=== PATIENT | male | born 1980 | race Caucasian/White ===

== ENCOUNTER 2016-03-20 18:09 | Emergency (ER) | payer OTHER ==
[2016-03-20 18:24] VITALS: BP 134/81
[2016-03-20] MEDS ORDERED: BSS OPTH.SOL* BTL ONE (18:39)
[2016-03-20] MEDS ORDERED: Fluorescein Sodium TOPICAL* 1 MG TEST ONE (18:39)
[2016-03-20] MEDS ORDERED: Tetracaine 0.5% OPTH.SOL 4 ML* 1 DROP BTL ONE (18:40)
--- NOTE | 2016-03-20 19:14 | UC ---
Eye Complaint HPI - HPI Summary HPI Summary: LEFT EYE REDNESS / PAIN , FB SENSATION + METAL SHAVING JUMPED IN HIS LEFT EYE , NO CHANGE IN VISION, NO PHOTOPHOBIA 2 WEEKS HX OF SINUS PRESSURE, NASAL CONGESTION , NO FEVER, NO COUGH - History of Current Complaint Chief Complaint: UCEye Stated Complaint: EYE IRRITATION Time Seen by Provider: 03/20/16 18:35 Hx Obtained From: Patient Onset/Duration: Sudden Onset, Lasting Days - 1, Still Present Timing: Constant Severity Initially: Moderate Severity Currently: Moderate Pain Intensity: 0 Pain Scale Used: 0-10 Numeric Location of Injury: Conjunctiva Character: Dull, Foreign Body Sensation - LEFT EYE Aggravating Factor(s): Nothing Alleviating Factor(s): Nothing Associated Signs And Symptoms: Positive: Drainage (Clear). Negative: Photophobia, Drainage (Purulent), Vision Impairment Bilateral, Vision Impairment Right, Vision Impairment Left, Fever, Swelling - Allergies/Home Medications Allergies/Adverse Reactions: Allergies Allergy/AdvReac Type Severity Reaction Status Date / Time Cephalexin [From Keflex] Allergy Hives Verified 03/20/16 18:24 Penicillins Allergy Hives Verified 03/20/16 18:24 PMH/Surg Hx/FS Hx/Imm Hx Previously Healthy: Yes - Surgical History Surgical History: Yes Surgery Procedure, Year, and Place: T & A, [facility] - Family History Known Family History: Positive: Diabetes - Social History Alcohol Use: Weekly Alcohol Amount: few times a week Substance Use Type: None Smoking Status (MU): Heavy Every Day Tobacco Smoker Type: Cigarettes Amount Used/How Often: 1 PK DAILY - Immunization History Most Recent Influenza Vaccination: none Review of Systems Constitutional: Negative Skin: Negative Eyes: Other - LEFT EYE PAIN ENT: Nasal Discharge Respiratory: Negative Cardiovascular: Negative All Other Systems Reviewed And Are Negative: Yes Physical Exam Triage Information Reviewed: Yes Appearance: Well-Appearing, No Pain Distress, Well-Nourished Vital Signs: Initial Vital Signs Temp 97.8 F 03/20/16 18:18 Pulse 84 03/20/16 18:18 Resp 17 03/20/16 18:18 BP 134/81 03/20/16 18:18 Pulse Ox 100 03/20/16 18:18 Vital Signs Reviewed: Yes Eyes: Positive: Conjunctiva Inflamed - LEFT EYE, Other: - CORNEAL ABRASION LEFT EYE , NO FB SEEN ENT: Positive: Normal ENT inspection, Hearing grossly normal, Pharyngeal erythema, Nasal congestion, Nasal drainage, TMs normal Neck exam: Normal Neck: Positive: Supple, Nontender, No Lymphadenopathy Respiratory: Positive: Chest non-tender, Lungs clear, Normal breath sounds Cardiovascular: Positive: RRR, No Murmur, Pulses Normal Eye Complaint Course/Dx - Differential Dx/Diagnosis Provider Diagnoses: CORNEAL ABRASION LEFT EYE. SINUSITIS Discharge - Discharge Plan Condition: Stable Disposition: HOME Prescriptions: Azithromycin TAB* [Zithromax TAB (Z-TOM) 250 mg #6 tabs] 2 tab PO .TODAY, THEN 1 DAILY #1 tom Erythromycin OPHTH.OINT* [Ilotycin OPHTH.OINT*] 1 applic LEFT EYE Q6H #1 tube Patient Education Materials: Sinusitis (ED), Corneal Abrasion (ED) Referrals: CLINT Mina [Medical Doctor] - Additional Instructions: FOLLOW UP IN 2 DAYS IF HAVING EYE PAIN , CHANGE IN YOUR VISION OR NO BETTER
== END 2016-03-20 19:09 | disposition home or self-care (01) ==
LOC: UCCORT 18:09
DX: S05.02XA Injury of conjunctiva and corneal abrasion without foreign body, left eye, initial encounter (principal); J32.9 Chronic sinusitis, unspecified; F17.210 Nicotine dependence, cigarettes, uncomplicated; X58.XXXA Exposure to other specified factors, initial encounter; Y92.9 Unspecified place or not applicable; Z88.0 Allergy status to penicillin; Z88.1 Allergy status to other antibiotic agents
CPT/HCPCS: 99212; A9270-GY; G0463

== ENCOUNTER 2016-10-01 15:53 | Emergency (ER) | payer OTHER ==
--- NOTE | 2016-10-01 16:03 | UC ---
Allergic Reaction HPI - HPI Summary HPI Summary: 36 YEAR OLD MALE PRESENTS WITH COMPLAINS OF REACTION TO A BEE STING. I WILL SEND HIM TO THE ER. - History of Current Complaint Stated Complaint: BEE STINGS,TIGHT THROAT,DIZZY Time Seen by Provider: 10/01/16 15:58 - Allergies/Home Medications Allergies/Adverse Reactions: Allergies Allergy/AdvReac Type Severity Reaction Status Date / Time Bee Venom Allergy Anaphylatic Verified 10/01/16 15:55 Shock Cephalexin [From Keflex] Allergy Hives Verified 10/01/16 15:55 Penicillins Allergy Hives Verified 10/01/16 15:55 Home Medications: Home Medications NK [No Home Medications Reported] 10/01/16 [History Confirmed 10/01/16] PMH/Surg Hx/FS Hx/Imm Hx Previously Healthy: Yes - Surgical History Surgical History: Yes Surgery Procedure, Year, and Place: T & A, [facility] - Family History Known Family History: Positive: Diabetes - Social History Alcohol Use: Weekly Alcohol Amount: few times a week Substance Use Type: None Smoking Status (MU): Heavy Every Day Tobacco Smoker Type: Cigarettes Amount Used/How Often: 1 PK DAILY - Immunization History Most Recent Influenza Vaccination: none Review of Systems Constitutional: Negative Skin: Rash, Other - bee sting Eyes: Negative ENT: Negative Respiratory: Negative Cardiovascular: Negative Gastrointestinal: Negative Genitourinary: Negative Motor: Negative Neurovascular: Negative Musculoskeletal: Negative Neurological: Negative Psychological: Negative All Other Systems Reviewed And Are Negative: Yes Physical Exam Triage Information Reviewed: Yes Eye Exam: Normal ENT Exam: Normal ENT: Positive: Pharyngeal erythema Dental Exam: Normal Neck exam: Normal Neck: Positive: 1 Respiratory Exam: Normal Cardiovascular Exam: Normal Abdominal Exam: Normal Musculoskeletal Exam: Normal Neurological Exam: Normal Psychological Exam: Normal Skin: Positive: rashes, Other - bee sting Allergic Reaction Course/Dx - Differential Dx/Diagnosis Provider Diagnoses: ALLERGIC REACTION TO A BEE STING Discharge - Discharge Plan Condition: Guarded Disposition: [facility] Referrals: CLINT Mina [Primary Care Provider] - Additional Instructions: PATIENT TRANSFERRED BY EMS TO [facility] FOR ANAPHYLACTIC REACTION TO BEE STING.
[2016-10-01 16:29] VITALS: BP 140/89
== END 2016-10-01 16:25 | disposition short-term general hospital (02) ==
LOC: UCCORT 15:53
DX: T63.441A Toxic effect of venom of bees, accidental (unintentional), initial encounter (principal); R42 Dizziness and giddiness; R09.89 Other specified symptoms and signs involving the circulatory and respiratory systems; Y92.9 Unspecified place or not applicable; Z88.1 Allergy status to other antibiotic agents; Z88.0 Allergy status to penicillin; Z91.030 Bee allergy status; F17.210 Nicotine dependence, cigarettes, uncomplicated
CPT/HCPCS: 99213; G0463

== ENCOUNTER 2017-03-24 13:37 | Emergency (ER) | payer OTHER ==
[2017-03-24 15:33] VITALS: BP 155/102
--- NOTE | 2017-03-24 15:48 | UC ---
FLU HPI - HPI Summary HPI Summary: 36 y/o male presents to the urgent care c/o headache, chills, nasal congestion , cough, started yesterday. Pt reports her sister in-law was recently Dx with influenza. He also has body aches and subjective fever at home. Pain is 6/10. Pt has not taking anything to alleviate symptoms. Pt denies SOB, chest pain, abdominal pain, N/V/D - History of Current Complaint Chief Complaint: UCGeneralIllness Stated Complaint: ACHY HEADACHE COUGH CONGESTION Time Seen by Provider: 03/24/17 15:34 Hx Obtained From: Patient Onset/Duration: Gradual Onset, Lasting Days - 1 day Severity Currently: Moderate Severity Initially: Moderate Pain Intensity: 6 Pain Scale Used: 0-10 Numeric Associated Signs & Symptoms: Positive: Fever, Myalgia, Cough, Sore Throat, Nasal Congestion, Headache - Risk Factors Influenza Risk Factors: Negative - Allergy/Home Medications Allergies/Adverse Reactions: Allergies Allergy/AdvReac Type Severity Reaction Status Date / Time MS Bee Venom [Bee Venom] Allergy Anaphylatic Verified 03/24/17 15:33 Shock MS Cephalexin [From Keflex] Allergy Hives Verified 03/24/17 15:33 MS Penicillins [Penicillins] Allergy Hives Verified 03/24/17 15:33 PMH/Surg Hx/FS Hx/Imm Hx Previously Healthy: Yes Other Endocrine History: Hypoglycemia - Surgical History Surgical History: Yes Surgery Procedure, Year, and Place: T & A, [facility] - Family History Known Family History: Positive: Diabetes - Social History Occupation: Employed Full-time Lives: With Family Alcohol Use: Occasionally Alcohol Amount: few times a week Substance Use Type: None Smoking Status (MU): Heavy Every Day Tobacco Smoker Type: Cigarettes Amount Used/How Often: 1 PK DAILY - Immunization History Most Recent Influenza Vaccination: none Review of Systems Constitutional: Fever, Chills, Other - body aches Skin: Negative Eyes: Negative ENT: Sore Throat, Nasal Discharge, Sinus Congestion Respiratory: Cough Cardiovascular: Negative Gastrointestinal: Negative Genitourinary: Negative Motor: Negative Neurovascular: Negative Musculoskeletal: Negative Neurological: Headache Psychological: Negative Is Patient Immunocompromised?: No All Other Systems Reviewed And Are Negative: Yes Physical Exam Triage Information Reviewed: Yes Vital Signs: Initial Vital Signs Temp 99.8 F 03/24/17 15:28 Pulse 100 03/24/17 15:28 Resp 16 01/30/18 15:28 BP 155/102 03/24/17 15:28 Pulse Ox 100 03/24/17 15:28 - Additional Comments VITAL SIGNS: Reviewed. GENERAL: Patient is a well developed and nourished male who is sitting comfortable in the examining table. Patient is not in any acute respiratory distress. HEAD AND FACE: No signs of trauma. No ecchymosis, hematomas or skull depressions. No sinus tenderness. edematous erythematous nasal mucosa with yellowish discharge, EYES: PERRLA, EOMI x 2, No injected conjunctiva, clear watery eyes, no nystagmus. No photophobia. EARS: Hearing grossly intact. Ear canals and tympanic membranes are within normal limits. MOUTH: Positive pharynx with erythema, no exudates,no palatal petechiae. no B/ L tonsillar enlargement Uvula in midline. NECK: Supple, trachea is midline, Positive anterior cervical lymphadenopathy, no JVD, no carotid bruit, no c-spine tenderness, neck with full ROM. No meningeal signs, no Kernig's or brudzinskis signs. CHEST: Symmetric, no tenderness at palpation LUNGS: Clear to auscultation bilaterally. No wheezing or crackles. CVS: Regular rate and rhythm, S1 and S2 present, no murmurs or gallops appreciated. ABDOMEN: Soft, non-tender. No signs of distention. No rebound no guarding, and no masses palpated. Bowel sounds are normal. EXTREMITIES: FROM in all major joints, no edema, no cyanosis or clubbing. NEURO: Alert and oriented x 3. No acute neurological deficits. Speech is normal and follows commands. SKIN: Dry and warm Flu Course/Dx - Course Course Of Treatment: 36 y/o male presents to the urgent care c/o headache, chills, nasal congestion , cough, started yesterday. Pt reports her sister in- law was recently Dx with influenza. He also has body aches and subjective fever at home. Pain is 6/10. Pt has not taking anything to alleviate symptoms. Pt denies SOB, chest pain, abdominal pain, N/V/D. Hx obtained. Pt with URI on examination. Most likely Influenza. However at this moment shortage of influenza test. Pt Rx Tamiflu and ibuprofen PO to alleviates symptoms. Advised on hand washing and wear a mask to avoid spreading. Pt advised to rest, increase fluid intake, eat well and avoid strenuous exercise. If symptoms do not improve or worsen advised to return to the urgent care or f/u with her PCP for further evaluation and treatment. Pt's BP is elevated today advised to decrease salt in diet, monitor BP and f/u with PCP for further management.Pt understood and agreed with plan of care. - Differential Dx/Diagnosis Differential Diagnosis/HQI/PQRI: Bronchitis, Influenza, Pneumonia, Upper Respiratory Infection Provider Diagnoses: 1- Influenza. 2- Elevated BP w/o Hx of HTN Discharge - Discharge Plan Condition: Stable Disposition: HOME Prescriptions: Ibuprofen TAB* [Motrin TAB* 800 MG] 800 mg PO Q6H #20 tab Oseltamivir CAP* [Tamiflu CAP*] 75 mg PO BID #10 cap Patient Education Materials: Influenza (ED), Low-Sodium Diet (ED) Forms: *Work Release Referrals: CLINT Mina [Primary Care Provider] - 3 Days Additional Instructions: 1- Please take the full course of the antiviral to avoid resistance. Encourage hand washing and wear a mask to avoid spreading. 2-Please continue taking Ibuprofen PO q6-8hrs prn as instructed after meals to alleviate fever, and sore throat. Increase fluid intake, eat well, rest and avoid strenuous exercise 3-If symptoms do not improve or worsen please return to the urgent care or f/u with your PCP in 2 days for further evaluation and treatment. 4-Your BP is elevated today. please decrease salt in your diet, monitor BP and if it continues to be elevated please f/u with your PCP for further management
== END 2017-03-24 16:14 | disposition home or self-care (01) ==
LOC: UCCORT 13:37
DX: J11.1 Influenza due to unidentified influenza virus with other respiratory manifestations (principal); R03.0 Elevated blood-pressure reading, without diagnosis of hypertension; E16.2 Hypoglycemia, unspecified; Z88.0 Allergy status to penicillin; Z88.1 Allergy status to other antibiotic agents; Z91.030 Bee allergy status; F17.210 Nicotine dependence, cigarettes, uncomplicated
CPT/HCPCS: 99212; G0463

== ENCOUNTER 2017-07-16 13:17 | Emergency (ER) | payer OTHER ==
[2017-07-16] MEDS ORDERED: Famotidine IV* 10 MG/ML 2 ML (20 mg) IV SLOW PU ONE (13:24)
[2017-07-16] MEDS ORDERED: diPHENhydraMINE IV* 50 MG/ML 1 ml VIAL (BENADRYL) IV ONE (13:24)
[2017-07-16] MEDS ORDERED: methylPREDNISolone 125 MG* 2 ML VIAL IV ONE (13:24)
[2017-07-16] MEDS ORDERED: EPINEPHrine AMP 1 MG/ML IM ONE (13:24)
--- NOTE | 2017-07-16 14:46 | ED ---
Allergic Reaction/Systemic - HPI Summary HPI Summary: 36-year-old male presents with a reaction to a bee sting. He states that he has shortness of breath and feels like his throat is closing up. He's had this reaction before and required epi. He does not have an EpiPen. He has not taking anything. He denies any headache. He denies any rash. He denies any nausea vomiting. He was stung on his left arm. He admits to palpitations. - History of Current Complaint Chief Complaint: EDAllergicReaction Time Seen by Provider: 07/16/17 13:26 Pain Intensity: 0 - Allergies/Home Medications Allergies/Adverse Reactions: Allergies Allergy/AdvReac Type Severity Reaction Status Date / Time MS Bee Venom [Bee Venom] Allergy Anaphylatic Verified 03/24/17 15:33 Shock MS Cephalexin [From Keflex] Allergy Hives Verified 03/24/17 15:33 MS Penicillins [Penicillins] Allergy Hives Verified 03/24/17 15:33 Home Medications: Home Medications Escitalopram (NF) [Lexapro 10 mg (NF)] 10 mg PO DAILY 07/16/17 [History Confirmed 07/16/17] PMH/Surg Hx/FS Hx/Imm Hx Endocrine/Hematology History: Denies: Hx Anticoagulant Therapy Respiratory History: Denies: Hx Asthma - Surgical History Surgery Procedure, Year, and Place: T & A, [facility] - Immunization History Immunizations Up to Date: Yes Infectious Disease History: No Infectious Disease History: Denies: Traveled Outside the [place] in Last 30 Days - Family History Known Family History: Positive: Diabetes - Social History Alcohol Use: Occasionally Alcohol Amount: few times a week Substance Use Type: Reports: None Smoking Status (MU): Heavy Every Day Tobacco Smoker Type: Cigarettes Amount Used/How Often: 1 PK DAILY Review of Systems Negative: Fever Positive: Sore Throat Negative: Chest Pain Positive: Shortness Of Breath. Negative: Cough Negative: Abdominal Pain All Other Systems Reviewed And Are Negative: Yes Physical Exam Triage Information Reviewed: Yes Vital Signs On Initial Exam: Initial Vitals Temp Pulse Resp BP Pulse Ox 98.9 F 124 22 146/101 96 07/16/17 13:20 07/16/17 13:20 07/16/17 13:20 07/16/17 13:20 07/16/17 13:20 Vital Signs Reviewed: Yes Appearance: Positive: Well-Appearing Skin: Positive: Warm, Dry Head/Face: Positive: Normal Head/Face Inspection Eyes: Positive: Normal, EOMI, ALLIE, Conjunctiva Clear ENT: Positive: Hearing grossly normal, Pharynx normal, TMs normal Respiratory/Lung Sounds: Positive: Clear to Auscultation, Breath Sounds Present Cardiovascular: Positive: Normal, RRR Abdomen Description: Positive: Nontender, Soft Bowel Sounds: Positive: Present Musculoskeletal: Positive: Normal Neurological: Positive: Normal Psychiatric: Positive: Normal Diagnostics - Vital Signs Vital Signs Temp Pulse Resp BP Pulse Ox 07/16/17 14:25 97.9 F 104 17 141/84 95 07/16/17 13:20 98.9 F 124 22 146/101 96 - Laboratory Lab Statement: Any lab studies that have been ordered have been reviewed, and results considered in the medical decision making process. Re-Evaluation - Re-Evaluation First Eval Re-Evaluation Time: 14:35 Change: Improved Comment: wants to be discharge. will have filler picker epipen before leave building. Allergic Reaction Course/Dx - Course Course Of Treatment: 36-year-old male presents with a reaction to a bee sting. He states that he has shortness of breath and feels like his throat is closing up. He's had this reaction before and required epi. He does not have an EpiPen. He has not taking anything. He denies any headache. He denies any rash. He denies any nausea vomiting. He was stung on his left arm. He admits to palpitations. With symptoms patient was immediately given EpiPen. I went to examine patient patient's lungs were clear to auscultation. Heart rate has come down. Pharynx is normal. Gave steroid and Benadryl patient feeling better. gave prescription from outpatient pharmacy for patient to go home with. Told that has a repeat episode to return to ED. Patient understands agrees with plan - Diagnoses Differential Diagnosis/HQI/PQRI: Positive: Airway Obstruction, Anaphylaxis, Erythema Nodosum, Local Allergic Reaction Provider Diagnoses: Anaphylactic reaction Discharge - Sign-Out/Discharge Documenting (check all that apply): Discharge/Admit/Transfer - Discharge Plan Condition: Good Disposition: HOME Prescriptions: EPINEPHrine [Epipen 2-Pete] 0.3 mg IJ ONCE #1 auto.injct predniSONE TAB* [Deltasone TAB*] 50 mg PO DAILY #4 tab Patient Education Materials: Anaphylaxis (ED) Referrals: CLINT Mina [Primary Care Provider] - Additional Instructions: Take Benadryl every 6 hours Take steroid once a day for 4 days starting tomorrow Return to ED if shortness of breath, chest pain, or if develop any new or worsening symptoms - Billing Disposition and Condition Condition: GOOD Disposition: HOME
[2017-07-16 14:49] VITALS: BP 135/78
== END 2017-07-16 14:48 | disposition home or self-care (01) ==
LOC: ED 13:17
DX: T78.2XXA Anaphylactic shock, unspecified, initial encounter (principal); X58.XXXA Exposure to other specified factors, initial encounter; Y92.9 Unspecified place or not applicable; F17.210 Nicotine dependence, cigarettes, uncomplicated
CPT/HCPCS: 96372; 96374; 96375; 99282; J0171; J1200; J2930

== ENCOUNTER 2020-09-08 13:34 | Inpatient (IN) ==
[2020-09-08] MEDS ORDERED: NS 0.9% 1000 ml BAG 1,000 ML IV ONE (15:16)
[2020-09-08 15:50] LABS: ABS Basophils 0.1 10^3/ul (0-0.2); ABS Lymphocytes 0.9 10^3/ul (1.0-4.8); ABS Monocytes 0.6 10^3/ul (0-0.8); ABS Neutrophils 4.7 10^3/ul (1.5-7.7); Eosinophil % 0.8 %; Hematocrit 45 % (42-52); Hemoglobin 16.4 g/dL (14.0-18.0); Lymphocyte % 13.7 %; Mean Corpuscular HGB Conc 36 g/dL (31-36); Mean Corpuscular Hemoglobin 34 pg (27-31); Mean Corpuscular Volume 94 fL (80-94); Mean Platelet Volume 7.4 fL (7.4-10.4); Platelet Count 197 10^3/uL (150-450); Red Blood Count 4.81 10^6 /uL (4.18-5.48); Red Cell Distribution Width 13 % (10-15); White Blood Count 6.2 10^3/uL (3.5-10.8)
[2020-09-08 15:55] LABS: Activated Partial Thrombo Time 31.7 seconds (26.0-38.0); INR 0.94 (0.86-1.15)
[2020-09-08 16:00] LABS: Albumin 4.6 g/dL (3.2-5.2); Albumin/Globulin Ratio 1.5 (1-3); C Reactive Protein 29.62 mg/L (<8.01); Calcium 9.3 mg/dL (8.6-10.3); EGFR African American 138.2 (>60); EGFR Non-African American 114.2 (>60); Potassium 3.9 mmol/L (3.5-5.0); Total Bilirubin 1.1 mg/dL (0.2-1.0); Total Protein 7.6 g/dL (6.4-8.9)
[2020-09-08] MEDS ORDERED: Iohexol 300 (CONTRAST) 10 ML SDV IV ONE (16:39)
[2020-09-08] MEDS ORDERED: Lactated Ringers 1000 ml BAG 1,000 ML IV ONE ×2 (17:12→17:50)
[2020-09-08] MEDS: Enoxaparin 40 MG/0.4 ML SYR SUBCUT SCH (18:46)
[2020-09-08] MEDS: Pantoprazole VIAL 40 MG VIAL IV SCH (18:46)
[2020-09-08] MEDS: Ondansetron 4 mg VIAL 2 MG/ML 2 ml VIAL IV PRN (18:47)
[2020-09-08] MEDS: Nicotine PATCH 21 MG/24 HR PATCH TRANSDERM SCH (18:47)
[2020-09-08 20:15] LABS: Hepatitis B Surface Antigen Nonreactive (Nonreactive)
[2020-09-08 20:20] LABS: Hepatitis A Ab IgM Negative (Negative); Hepatitis B Core IgM Nonreactive (Nonreactive)
[2020-09-08 20:32] LABS: Hepatitis C Antibody Negative (Negative)
[2020-09-08] MEDS: Lactated Ringers 1000 ml BAG 1,000 ML IV SCH (20:53)
[2020-09-08] MEDS ORDERED: Thiamine 100 MG/ML 2 ml VIAL (200 mg) IM ONE (21:05)
[2020-09-08] MEDS ORDERED: Lorazepam PYXIS KEY PRN (21:27)
[2020-09-09] MEDS: Ondansetron 4 mg VIAL 2 MG/ML 2 ml VIAL IV PRN ×3 (01:06→19:52)
[2020-09-09] MEDS: Lactated Ringers 1000 ml BAG 1,000 ML IV SCH ×3 (03:23→19:53)
[2020-09-09 05:58] LABS: ABS Eosinophils 0.1 10^3/ul (0-0.6); ABS Lymphocytes 0.8 10^3/ul (1.0-4.8); ABS Monocytes 0.3 10^3/ul (0-0.8); ABS Neutrophils 2.5 10^3/ul (1.5-7.7); Eosinophil % 2.2 %; Hematocrit 44 % (42-52); Hemoglobin 15.2 g/dL (14.0-18.0); Lymphocyte % 20.6 %; Mean Corpuscular HGB Conc 35 g/dL (31-36); Mean Corpuscular Hemoglobin 33 pg (27-31); Mean Corpuscular Volume 94 fL (80-94); Mean Platelet Volume 7.5 fL (7.4-10.4); Platelet Count 172 10^3/uL (150-450); Red Blood Count 4.61 10^6 /uL (4.18-5.48); Red Cell Distribution Width 13 % (10-15); White Blood Count 3.7 10^3/uL (3.5-10.8)
[2020-09-09] MEDS: LORazepam 2 mg VIAL 1 ml IV PUSH SCH (06:22)
[2020-09-09] MEDS: Nicotine PATCH 21 MG/24 HR PATCH TRANSDERM SCH (06:23)
[2020-09-09 07:02] LABS: Albumin 3.6 g/dL (3.2-5.2); Albumin/Globulin Ratio 1.4 (1-3); Calcium 8.8 mg/dL (8.6-10.3); EGFR African American 134.1 (>60); EGFR Non-African American 110.8 (>60); Globulin 2.6 g/dL (2-4); Potassium 4.2 mmol/L (3.5-5.0); Total Bilirubin 3.6 mg/dL (0.2-1.0); Total Protein 6.2 g/dL (6.4-8.9)
[2020-09-09 08:02] LABS: Direct Bilirubin 2.4 mg/dL (0.03-0.18)
[2020-09-09] MEDS: Multivitamins/Minerals TAB PO SCH (09:26)
[2020-09-09] MEDS: Enoxaparin 40 MG/0.4 ML SYR SUBCUT SCH (16:46)
[2020-09-09] MEDS: Pantoprazole VIAL 40 MG VIAL IV SCH (16:47)
[2020-09-10] MEDS: Ondansetron 4 mg VIAL 2 MG/ML 2 ml VIAL IV PRN (01:43)
[2020-09-10] MEDS: Lactated Ringers 1000 ml BAG 1,000 ML IV SCH ×2 (03:01→09:50)
[2020-09-10 06:12] LABS: Hematocrit 48 % (42-52); Hemoglobin 16.3 g/dL (14.0-18.0); Mean Corpuscular HGB Conc 34 g/dL (31-36); Mean Corpuscular Hemoglobin 33 pg (27-31); Mean Corpuscular Volume 96 fL (80-94); Mean Platelet Volume 8.4 fL (7.4-10.4); Platelet Count 166 10^3/uL (150-450); Red Blood Count 4.96 10^6 /uL (4.18-5.48); Red Cell Distribution Width 12 % (10-15); White Blood Count 5.7 10^3/uL (3.5-10.8)
[2020-09-10 06:29] LABS: Albumin 3.6 g/dL (3.2-5.2); Albumin/Globulin Ratio 1.4 (1-3); Calcium 8.8 mg/dL (8.6-10.3); EGFR African American 157.1 (>60); EGFR Non-African American 129.8 (>60); Globulin 2.6 g/dL (2-4); Magnesium 1.6 mg/dL (1.9-2.7); Potassium 3.9 mmol/L (3.5-5.0); Total Bilirubin 2.3 mg/dL (0.2-1.0); Total Protein 6.2 g/dL (6.4-8.9)
[2020-09-10] MEDS ORDERED: Magnesium Sulfate 2 gm BAG 2 GM/50 ML BAG IVPB ONE (07:18)
[2020-09-10] MEDS: Nicotine PATCH 21 MG/24 HR PATCH TRANSDERM SCH (09:49)
[2020-09-10] MEDS: Multivitamins/Minerals TAB PO SCH (10:42)
[2020-09-10 16:10] VITALS: BP 156/100
[2020-09-10] MEDS: LORazepam 2 mg VIAL 1 ml IV PUSH SCH (16:16)
== END 2020-09-10 18:20 | disposition left against medical advice (07) | DRG 282 ==
LOC: ED 13:34 → MED 19:22
PROVIDERS: ADMIT Hospitalist; ATTEND Internal Medicine